=== PATIENT | female | born 2000 | race Caucasian/White ===

== ENCOUNTER 2019-05-14 09:16 | Emergency (ER) | payer MEDICAID ==
[2019-05-14] MEDS ORDERED: cefTRIAXone 250 MG in Lidocaine 1% 1 ML IM ONE (10:16)
[2019-05-14] MEDS ORDERED: Azithromycin 250 MG Tab PO STA (10:16)
--- NOTE | 2019-05-14 10:27 | EDM.PDOC ---
ED HPI GENERAL MEDICAL PROBLEM - General Chief Complaint: Lower Extremity Injury/Pain Stated Complaint: RIGHT LEG/THIGH PAIN Time Seen by Provider: 05/14/19 10:24 Source of Information: Reports: Patient - History of Present Illness INITIAL COMMENTS - FREE TEXT/NARRATIVE: HISTORY AND PHYSICAL: History of present illness: []Patient presents with 2 complaints she has right lower extremity pain/muscle spasm and bruising concerning the right thigh, she denies injury or trauma she has been doing her usual routine without injury per patient however upon awakening this morning she got up out of bed complains of pain with ambulation she has small bruises she has tender along the right quads as well as hamstring area with muscle spasm no fever nausea vomiting chills sweats Consider early she has history of gonorrhea/Chlamydia exposure last month she was treated however is now having pelvic cramping and is concerned of same ever denies any further sexual contact Review of systems: As per history of present illness and below otherwise all systems reviewed and negative. Past medical history: As per history of present illness and as reviewed below otherwise noncontributory. Surgical history: As per history of present illness and as reviewed below otherwise noncontributory. Social history: No reported history of drug or alcohol abuse. Family history: As per history of present illness and as reviewed below otherwise noncontributory. Physical exam: HEENT: Atraumatic, normocephalic, pupils reactive, negative for conjunctival pallor or scleral icterus, mucous membranes moist, throat clear, neck supple, nontender, trachea midline. Lungs: Clear to auscultation, breath sounds equal bilaterally, chest nontender. Heart: S1S2, regular, negative for clicks, rubs, or JVD. Abdomen: Soft, nondistended, nontender. Negative for masses or hepatosplenomegaly. Negative for costovertebral tenderness. Pelvis: Stable nontender. Genitourinary: Deferred. Rectal: Deferred. Extremities: Atraumatic, negative for cords or calf pain. Neurovascular unremarkable. Neuro: Awake, alert, oriented. Cranial nerves II through XII unremarkable. Cerebellum unremarkable. Motor and sensory unremarkable throughout. Exam nonfocal. Diagnostics: [UA hCG GC Chlamydia ] Therapeutics: [Rocephin and azithromycin Cipro Brenden wrap rest ice ibuprofen ] Impression: [ UTI recent STD Still spasm ] Definitive disposition and diagnosis as appropriate pending reevaluation and review of above. Right Thigh Pain Score (Numeric/FACES): 5 - Related Data Allergies Allergy/AdvReac Type Severity Reaction Status Date / Time No Known Allergies Allergy Verified 05/14/19 09:27 Home Meds: Home Meds Non-Formulary Medication [NF Drug] 1 each PO DAILY 05/14/19 [History] Past Medical History - Past Health History Medical/Surgical History: Denies Medical/Surgical History - Infectious Disease History Infectious Disease History: Reports: None Social & Family History - Family History Family Medical History: Noncontributory - Tobacco Use Smoking Status *Q: Current Every Day Smoker Years of Tobacco use: 4 Packs/Tins Daily: 0.5 - Caffeine Use Caffeine Use: Reports: Soda, Tea - Recreational Drug Use Recreational Drug Use: No Review of Systems - Review of Systems Review Of Systems: See Below ED EXAM, GENERAL - Physical Exam Exam: See Below Course - Vital Signs Last Recorded V/S: Last Vital Signs Temp 97.0 F 05/14/19 09:28 Pulse 81 05/14/19 09:28 Resp 17 05/14/19 09:28 BP 117/69 05/14/19 09:28 Pulse Ox 98 05/14/19 09:28 - Orders/Labs/Meds Orders: Active Orders 24 hr Category Date Time Status CHLAMYDIA AND GONORRHEA BY TMA Stat Lab 05/14/19 09:35 Received CULTURE URINE [RM] Stat Lab 05/14/19 09:35 Received HCG QUALITATIVE,URINE [URCHEM] Stat Lab 05/14/19 09:35 Received Labs: Laboratory Tests 05/14/19 Range/Units 09:35 Urine Color YELLOW Urine Appearance HAZY Urine pH 5.5 (5.0-8.0) Ur Specific Ste[place]oe >= 1.030 (1.001-1.035) Urine Protein TRACE H (NEGATIVE) mg/dL Urine Glucose (UA) NEGATIVE (NEGATIVE) mg/dL Urine Ketones 15 H (NEGATIVE) mg/dL Urine Occult Blood NEGATIVE (NEGATIVE) Urine Nitrite NEGATIVE (NEGATIVE) Urine Bilirubin SMALL H (NEGATIVE) Urine Ictotest NEGATIVE Urine Urobilinogen 0.2 (<2.0) EU/dL Ur Leukocyte Esterase TRACE H (NEGATIVE) Urine RBC 0-2 (0-2/HPF) Urine WBC 3-5 (0-5/HPF) Ur Epithelial Cells FEW (NONE-FEW) Urine Bacteria 3+ H (NEGATIVE) Urine Mucus LIGHT (NONE-MOD) Urinalysis Comment Meds: Medications Discontinued Medications Generic Name Dose Route Start Last Admin Trade Name Isidoro PRN Reason Stop Dose Admin Azithromycin 1,000 mg 05/14/19 10:16 Zithromax PO 05/14/19 10:17 NOW STA Ceftriaxone Sodium 250 mg/ 1 mls @ 1 mls/sec 05/14/19 10:16 Lidocaine HCl IM 05/14/19 10:17 ONETIME ONE Departure - Departure Time of Disposition: 10:27 Disposition: Home, Self-Care 01 Condition: Good Clinical Impression: Muscle spasm, UTI (urinary tract infection) - Discharge Information Referrals: PCP,None [Primary Care Provider] - Additional Instructions: The following information is given to patients seen in the emergency department who are being discharged to home. This information is to outline your options for follow-up care. We provide all patients seen in our emergency department with a follow-up referral. The need for follow-up, as well as the timing and circumstances, are variable depending upon the specifics of your emergency department visit. If you don't have a primary care physician on staff, we will provide you with a referral. We always advise you to contact your personal physician following an emergency department visit to inform them of the circumstance of the visit and for follow-up with them and/or the need for any referrals to a consulting specialist. The emergency department will also refer you to a specialist when appropriate. This referral assures that you have the opportunity for follow-up care with a specialist. All of these measure are taken in an effort to provide you with optimal care, which includes your follow-up. Under all circumstances we always encourage you to contact your private physician who remains a resource for coordinating your care. When calling for follow-up care, please make the office aware that this follow-up is from your recent emergency room visit. If for any reason you are refused follow-up, please contact the [facility] emergency department at and asked to speak to the emergency department charge nurse. - My Orders Last 24 Hours: My Active Orders 05/14/19 09:35 CHLAMYDIA AND GONORRHEA BY TMA Stat CULTURE URINE [RM] Stat HCG QUALITATIVE,URINE [URCHEM] Stat - Assessment/Plan Last 24 Hours: My Active Orders 05/14/19 09:35 CHLAMYDIA AND GONORRHEA BY TMA Stat CULTURE URINE [RM] Stat HCG QUALITATIVE,URINE [URCHEM] Stat
== END 2019-05-14 11:04 | disposition home or self-care (01) ==
LOC: MW.ED 09:16
DX: N39.0 Urinary tract infection, site not specified (principal); M62.838 Other muscle spasm; F17.210 Nicotine dependence, cigarettes, uncomplicated
CPT/HCPCS: 81001; 81025; 87086; 87491; 87591; 96372; 99283; A9270; J0696; J2001